=== PATIENT | male | born 1950 | race African-American/Black ===

== ENCOUNTER 2018-08-29 00:48 | Emergency (ER) | payer OTHER ==
[~2018-08-29] VITALS: Ht 180.3 cm; Wt 86.2 kg
[~2018-08-29 00:48] MED LIST: ACETAMINOPHEN-120 ML PO; ALBUTEROL INHAL17 GM IH; AZITHROMYCIN 2250 MG PO; DIFLUCAN150 MG PO; LORTABELXR PO; METFORMIN 500500 MG PO; MICRO-K 10 MEQ10 MEQ PO; NORCO 5-325 TA1 EACH PO; NOT SURE OF MEDS; PREDNISONE50 MG PO; PROAIR HFA8.5 GM IH; ZANTAC 150MG T150 M1 PO
[2018-08-29 01:10] LABS: URINE BILIRUBIN NEGATIVE (Negative); URINE BLOOD NEGATIVE (Negative); URINE CLARITY CLEAR; URINE COLOR YELLOW; URINE GLUCOSE-RANDOM* NEGATIVE (Negative); URINE KETONES NEGATIVE (Negative); URINE LEUKOCYTES NEGATIVE (Negative); URINE NITRITE NEGATIVE (Negative); URINE PROTEIN (DIPSTICK) NEGATIVE (Negative); URINE UROBILINOGEN 0.2 E.U./dl (0.2-1.0)
[2018-08-29] MEDS ORDERED: TRADJENTA5 MG (01:18)
[2018-08-29] MEDS ORDERED: FLOMAX0.4 MG PO (01:18)
[2018-08-29] MEDS ORDERED: NEURONTIN300 MG PO (01:18)
[2018-08-29] MEDS ORDERED: COZAAR 25 MG TA25 M1 PO (01:19)
[2018-08-29] MEDS ORDERED: CARVEDILOL (01:19)
== END 2018-08-29 01:56 | disposition home or self-care (01) ==
LOC: ER 00:48
PROVIDERS: Emergency Medicine
DX: Z20.2 Contact with and (suspected) exposure to infections with a predominantly sexual mode of transmission (principal); E11.9 Type 2 diabetes mellitus without complications; Z90.49 Acquired absence of other specified parts of digestive tract